=== PATIENT | male | born 1930 | race Caucasian/White ===

== ENCOUNTER 2016-09-20 06:24 | Day surgery (SDC) | payer OTHER ==
[2016-09-20] VITALS (10 sets, daily range): BP systolic 132–184; BP diastolic 71–101; PULSE 53–88; TEMP 97.5–98.5
[~2016-09-20] VITALS: Ht 175.3 cm; Wt 93.6 kg
[2016-09-20] MEDS ORDERED: NORVASC 5MG5 MG/TAB PO (06:53)
[2016-09-20] MEDS ORDERED: PRINIVIL40 MG PO (06:53)
[2016-09-20] MEDS ORDERED: KLOR-CON M2020 MEQ PO (06:54)
[2016-09-20] MEDS ORDERED: SENOKOT8.6 MG PO (06:54)
[2016-09-20] MEDS ORDERED: TYLENOL 500MG500 MG PO (06:55)
[2016-09-20] MEDS ORDERED: MIRALAX PA17 GM/Dose PO (06:56)
[2016-09-20] MEDS ORDERED: MOTRIN 600600 MG/TAB PO (06:56)
[2016-09-20] MEDS ORDERED: LOPRESSOR 550 MG/TAB PO (06:58)
[2016-09-20] MEDS ORDERED: ASPIRIN E.C. 8181 MG PO (06:58)
[2016-09-20] MEDS ORDERED: MELATONIN3 MG PO (06:59)
[2016-09-20] MEDS ORDERED: PARCOPA 25/101 UDTAB NG (07:00)
[2016-09-20] MEDS ORDERED: FLOMAX 0.40.4 MG/CAP PO (07:01)
[2016-09-20] MEDS ORDERED: PROSCAR 5MG5 MG PO (07:01)
[2016-09-20] MEDS ORDERED: LASIX 80MG TABL80 MG PO (07:01)
[2016-09-20] MEDS ORDERED: TIROSINT50 MC1 PO (07:02)
[2016-09-20] MEDS ORDERED: PERI-COLACE 501 TAB PO (11:39)
[2016-09-21 01:34] VITALS: BP 137/72; PULSE 67; TEMP 98.5
[2016-09-21 04:47] VITALS: BP 164/86; PULSE 56; TEMP 98.2
[2016-09-21 09:46] VITALS: BP 134/64; PULSE 66; TEMP 97.5
[2016-09-21 09:56] VITALS: BP 134/64; PULSE 66; TEMP 97.5
== END 2016-09-21 13:30 ==
LOC: SDCO 06:24 → SURG 10:24 → SDCO 09-21 13:30
DX: N40.1 Benign prostatic hyperplasia with lower urinary tract symptoms (principal); R33.8 Other retention of urine; E78.5 Hyperlipidemia, unspecified; Z86.73 Personal history of transient ischemic attack (TIA), and cerebral infarction without residual deficits
CPT/HCPCS: OP; J0690; J2405; J2704; J3010; J7030